=== PATIENT | male | born 1955 | race Caucasian/White ===

== ENCOUNTER → 2019-05-23 09:07 | Outpatient (BNVA) | payer OTHER, SELFPAY | PROVIDERS: Family Provider Family Medicine; PCP Family Medicine; Visit Provider Family Medicine | DX: E78.2 Mixed hyperlipidemia (principal); R35.1 Nocturia | CPT/HCPCS: 36415; 80053; 80061; 84153; 85025 ==

== ENCOUNTER → 2019-11-20 15:54 | Outpatient (BNVA) | payer OTHER, SELFPAY | PROVIDERS: Absent Provider Dermatology; Family Provider Family Medicine; PCP Family Medicine; Visit Provider Dermatology | DX: D48.9 Neoplasm of uncertain behavior, unspecified (principal); L57.0 Actinic keratosis; Z85.828 Personal history of other malignant neoplasm of skin | CPT/HCPCS: 11102; 11103; 11300; 11305; 17000; 17003; 99203 ==

== ENCOUNTER → 2019-11-21 08:22 | Outpatient (BNVA) | payer OTHER, SELFPAY | PROVIDERS: Family Provider Family Medicine; PCP Family Medicine; Visit Provider Family Medicine | DX: E78.2 Mixed hyperlipidemia (principal) | CPT/HCPCS: 80053; 80061; 88305 ==

== ENCOUNTER → 2019-12-19 10:21 | Outpatient (BNVA) | payer OTHER, SELFPAY | PROVIDERS: Family Provider Family Medicine; PCP Family Medicine; Visit Provider Dermatology | DX: C44.91 Basal cell carcinoma of skin, unspecified (principal); D48.9 Neoplasm of uncertain behavior, unspecified | CPT/HCPCS: 11602; 12032; 88304; 88305 ==

== ENCOUNTER → 2020-01-02 09:58 | Outpatient (BNVA) | payer OTHER, SELFPAY | PROVIDERS: Family Provider Family Medicine; PCP Family Medicine; Visit Provider Dermatology | DX: Z48.02 Encounter for removal of sutures (principal) | CPT/HCPCS: 99212 ==

== ENCOUNTER → 2020-01-21 08:05 | Outpatient (BNVA) | payer OTHER, SELFPAY | PROVIDERS: Family Provider Family Medicine; PCP Family Medicine; Visit Provider Dermatology | DX: C44.311 Basal cell carcinoma of skin of nose (principal); C44.91 Basal cell carcinoma of skin, unspecified; L57.0 Actinic keratosis; D48.9 Neoplasm of uncertain behavior, unspecified | CPT/HCPCS: 12051; 17000; 17003; 17311; 99213; 99214 ==

== ENCOUNTER → 2020-01-28 11:26 | Outpatient (BNVA) | payer OTHER, SELFPAY | PROVIDERS: Family Provider Family Medicine; PCP Family Medicine; Visit Provider Dermatology | DX: Z48.02 Encounter for removal of sutures (principal) | CPT/HCPCS: 99024 ==